=== PATIENT | female | born 2000 | race Caucasian/White ===

== ENCOUNTER 2024-08-09 17:15 | Outpatient (CLI) | payer MEDICAID, SELFPAY | END 2024-08-09 17:16 | disposition home or self-care (01) | LOC: NFLDREF 08-12 09:42 | PROVIDERS: Visit Provider Midwife | DX: Z34.83 Encounter for supervision of other normal pregnancy, third trimester (principal) | CPT/HCPCS: 86592 ==

== ENCOUNTER 2024-10-05 10:00 | Outpatient (CLI) | payer MEDICAID, SELFPAY | END 2024-10-05 10:01 | disposition home or self-care (01) | LOC: NFLDREF 10-07 14:33 | PROVIDERS: Visit Provider Advanced Practice Midwife | DX: Z34.93 Encounter for supervision of normal pregnancy, unspecified, third trimester (principal); Z3A.37 37 weeks gestation of pregnancy | CPT/HCPCS: 87081; 87653 ==

== ENCOUNTER 2024-10-28 23:50 | Inpatient (IN) | payer MEDICAID, SELFPAY ==
[2024-10-28 23:53] VITALS: BMI 26.3
[2024-10-28 23:56] VITALS: BP 126/84; PULSE 75
[2024-10-29] VITALS (15 sets, daily range): BP systolic 100–133; BP diastolic 59–95; PULSE 71–127; RESP 16–18; TEMP 36.4–37.1; O2SAT 96–98
[2024-10-29 00:13] LABS: Hematocrit 39.8 % (33.0-51.0); Hemoglobin* 13.6 gm/dL (12.0-16.0); Immature Granulocytes Pct Auto 0.3 %; Mean Corpuscular HGB Conc 34 gm/dL (32-36); Mean Corpuscular Hemoglobin 30 pg (26-34); Mean Corpuscular Volume 87 fL (80-100); RDW Coefficient of Variation % 13.1 % (11.5-15.5); Red Blood Count 4.59 m/uL (4.00-5.20); White Blood Count* 13.22 K/uL (4.50-11.00)
[2024-10-29 00:15] LABS: Immature Granulocytes Abs Auto 0.00 K/uL (0.00-0.30); Lymphocytes Absolute Auto 1.70 K/uL (0.90-2.90); Slide Review Reflex No
--- NOTE | 2024-10-29 01:52 | W.PM.LDBA ---
Subjective History of Present Illness Date Seen: 10/29/24 Narrative: Patient is being admitted to Labor and Delivery for spontaneous labor. She is a 24 year old at 40.2 weeks gestation. Her full history and physical was dictated by Quynh Hernadez CNM on 10/13/24. Please see this for details. She was seen in the clinic today and had a membrane sweep. She began jason around 1900 and presented to the unit shortly before midnight. Specific Issues/Plans G2 P 1001 Partner: Stan, Son: Sarmad. It is a girl!? SAMEER Pierce has POTS and has fainted before. Transfer at 28 weeks New in [place] (SAMEER had 1st baby at [facility]) H&P done by Quynh Hernadez on 10/13/24 ? #Non-immune to rubella. Offer MMR #Left cardiac ventricular EIF Genetic/carrier screen recommended by [facility]. Sent 08/03/2024: Low Risk ? COVID:??declines Flu:??? Tdap:?09/14/2024 32wk Mental Health:?08/24/24 34wk hgb:09/14/24 ? Pap: [(Only high-risk abnormal pap in problem list)]? ?? OB Labs 04/05/2024:??? Blood type: A+, antibody screen negative.??? Hgb: 13.4??? Platelets: 217??? Rubella: Nonimmune??? RPR: non-reactive??? HBsAg: non-reactive??? Hep C: negative? HIV: negative??? UC: negative? GC/Chlamydia: HgbA1C:4.6? IMAGING:??? 1st trimester:Not done Anatomy scan: ?Normal findings except left cardiac EIF and slight enlargement of cerebellum noted. Size =dates. Normal fluid levels. Anterior placenta. Normal maternal structures. F/U in 2-3w recommended.?? Others: 06/08/24- Follow up with dopplers: Normal growth with normal cerebellum. EIF intracardiac of left ventricle persists and seen in only some images.? Records requested for her early care visit, indicated on records available. OB - Problem Based A/P Additional Plan (1) Pain during labor: Status: Acute (2) Rubella non-immune status, delivered, current hospitalization: Status: Acute Plan ASSESSMENT:? at 40.2 weeks gestation? GBS negative? Uncomplicated ? Labor type: spontaneous Blood type:?A+ ?? PLAN:? 1. Candidate for analgesia of choice. Planning unmedicated .? 2. Labs collected with IV placement for anticipated AMTSL. 3. Anticipate .? 4. Expectant management at this time.? 5.Intermittent auscultation after reactive tracing. Delivery/Labor/Induction Plan Plan: expectant management OB Result Labs Blood Type: A (+) positive Rubella: nonimmune RPR/VDLR: nonreactive GBS Status: negative HBsAG: negative OB Exam Physical Exam Vital signs: Temp Pulse Resp BP 97.8 F 71 16 119/62 10/29/24 01:49 10/29/24 01:49 10/29/24 01:49 10/29/24 01:49 Narrative: Psychiatric:? Alert and oriented x3? HEENT:? Normocephalic, atraumatic? Neck:? Supple without adenopathy or thyromegaly? Lungs:? Clear to auscultation bilaterally? Heart:? Regular rate and rhythm, no murmur, rub or gallop? Abdomen:? Soft, nontender, and gravid? Extremities:? No edema or erythema? Detailed Labor and Delivery Exam Patient Gravid: yes Dilation (cm): 6 (per RN exam) Contraction Frequency: 3-4 Contraction intensity: Strong/Firm Fetus (Single) Amniotic Membrane Status: intact Heart Rate Baseline: 125 Monitor Accelerations: Present Monitor Decelerations: None Halfway Variability: Moderate (6-25)
[2024-10-29] MEDS: OXYTOCIN 30 unit/500 ML in NS 30 UNIT/500 ML BAG 300 UNIT IVPB (02:03)
--- NOTE | 2024-10-29 02:25 | W.PM.OBVAGDE ---
OB Procedure Vag Delivery Mother Details Mother Details: The patient is a 24 year-old, 2, Para 1, admitted on 10/28/24 at 40.3 Days gestation. : 2 Para: 2 Weeks Gestation: 40.3 Admission Date: 10/28/24 Additional Details Amniotic Membrane Status: AROM Amniotic Membrane Rupture Date: 10/29/24 Amniotic Membrane Rupture Time: 01:44 Amniotic Membrane Fluid Description: Clear Analgesia/Anesthesia Type: None Waterbirth: No Pitcoin: Yes (AMTSL only) Intrapartal Events: None Labor Onset: 19:00 Complete: 01:52 (presumed complete with spontaneous pushing ) Pushin:52 Heart: heart tones during second stage were auscultated in the 120's. Increase was heard. Delivery Details Delivery Date: 10/29/24 Delivery Time: 02:00 Route of delivery: Infant Gender: Female Infant Viability: Alive; Heart Rate Present Position at Delivery: OA Delivery Details: Patient was admitted for spontaneous labor and progressed normally. AROM noted at 0144 with clear fluid. Patient was presumed complete with spontaneous pushing at 0144. of a viable female at 0200 in hands and knees on the bed. Vertex delivered OA. No nuchal cord or shoulder. Body cord noted with delivery of the body was easily delivered through. Body delivered easily and without incident. Infant passed to mothers abdomen through her legs with a vigorous cry. Cord was clamped and cut at > 5 minutes. APGARS were 9 at one minute and 9 at five minutes respectively. Mouth was bulb suctioned. Intact placenta with a 3 vessel cord delivered spontaneously at 0208. Fundus firm. Intact perineum identified and repaired in typical fashion. QBL 150mL in the drape and 100mL EBL on pads on the bed. Mother and baby stable; mother plans to breastfeed. weight pending. 1 Minute Interval Total Score: 9 5 Minute Interval Total Score: 9 Additional Details Shoulder Dystocia: No Placenta Delivery Time: 02:08 Placental Delivery Description: Spontaneous Procedure Done: Global Blood Loss: 250 Laceration: None Episiotomy Description: None Blood Loss Measurement Type: EBL Bakri Used: No Sponge/Need Count Correct: Yes Cord Vessel Description: 3 Vessels, Around Body and Delivered through Event Summary Status: Mother and infant were stable after delivery. Disposition: floor
[2024-10-29] MEDS: METHYLERGONOVINE MALEATE 0.2 MG TABLET PO (10:07)
[2024-10-30 00:21] VITALS: BP 105/67; PULSE 76; RESP 14; TEMP 36.9; O2SAT 98
[2024-10-30 03:32] VITALS: BP 96/64; PULSE 91; RESP 16; TEMP 36.6; O2SAT 98
[2024-10-30 06:09] LABS: Hemoglobin* 11.4 gm/dL (12.0-16.0)
[2024-10-30 07:39] VITALS: BP 104/69; PULSE 88; RESP 16; TEMP 36.5; O2SAT 98
--- NOTE | 2024-10-30 07:52 | P.DS_ITS ---
DS: Providers Provider Date Seen: 10/30/24 Date of admission: 10/28/24 23:50 Primary care physician: Not a Local Provider Admitting Clinician: Karen Perkins CNM Attending Physician on discharge: Edmundo Hernadez CNM Date of Discharge: 10/30/24 DS: Diagnosis Discharge Diagnosis (1) care and examination immediately after delivery: Status: Acute (2) Lactating mother: Status: Acute Exam Narrative: Exam Narrative: VSS, afebrile GENERAL APPEARANCE: ?normal affect, alert, no distress MOOD: ?appropriate HEENT: normocephalic, neck supple, full ROM CHEST: ?Symmetrical chest wall movement. ?Normal respiratory effort. ?Clear to auscultation HEART: ?regular rate and rhythm ABDOMEN: ?soft, non-tender. Uterine fundus is firm, 2 below Umbilicus, Midline and is appropriate for the stage of recovery. ?Bowel sounds present. PERINEUM: ?mild edema of the perineum, intact EXTREMITIES: ?normal and trace edema Const: Vital Signs, click to edit/add: Vital Signs - 24 hr 10/29/24 08:50 10/29/24 12:53 10/29/24 16:37 Temperature 98.2 F 97.8 F Pulse Rate [Pulse Oximeter] 127 H 98 101 H Respiratory Rate 16 16 16 Blood Pressure [Ri ght Arm] 109/70 100/64 116/72 Pulse Oximetry 98 97 96 Oxygen Delivery Me thod Room Air Room Air 10/29/24 20:44 10/30/24 00:21 10/30/24 03:32 Temperature 98.8 F 98.5 F 97.8 F Pulse Rate [Pulse Oximeter] 106 H 76 91 Respiratory Rate 18 14 16 Blood Pressure [Ri ght Arm] 107/66 105/67 96/64 Pulse Oximetry 97 98 98 Oxygen Delivery Me thod Room Air Room Air Room Air 10/30/24 07:39 Temperature 97.7 F Pulse Rate [Pulse Oximeter] 88 Respiratory Rate 16 Blood Pressure [Ri ght Arm] 104/69 Pulse Oximetry 98 Oxygen Delivery Me thod Room Air Documenting provider has reviewed patient's vital signs: yes OB - DS: Summary Hospital Course Hospital Course: Nia is a 24 y.o. who was admitted to L & D for labor. ?She had an uncomplicated NVD.?The patient feels well. ?The pain is well controlled with current medications. ?She has no new complaints. ?She is breast feeding and reports things are going well.? the patient has done well.? Vitals have been stable.? She has remained afebrile.? Has a good appetite, is tolerating a general diet. ?She is voiding without difficulty.? She is passing gas and has not had a bowel movement.? She is ambulating and denies any dizziness.? Has Small amount of rubra lochia. ?She is undecided on their plan for prevention. She is requesting discharge today. Peripartum Data delivery method: Vaginal complications: none [place] Infant Gender: Female Discharge Plan: Home Status at Discharge Functional status at discharge: independent ambulation Overall status at discharge: patient is progressing back to baseline Time Spent with Patient Time attestation: Total time spent providing and/or coordinating discharge services: Time spent: Less than 30 minutes Discharge Plan Discharge Disposition: Home, Self-Care Date of Admission: 10/28/24 23:50 Attending Provider on Discharge: Edmundo Hernadez Primary Care Provider: Provider,Not a Local Condition: Stable Anticipated Discharge Date/Time: 10/30/24 12:00 Discharge Medications: New acetaminophen 500 mg Tablet 1,000 mg PO Q6H PRNQty: 0 0RF docusate sodium 100 mg Capsule 100 mg PO DAILY Qty: 90 0RF ibuprofen 600 mg Tablet 600 mg PO Q6H PRNQty: 60 0RF Continued One-A-Day -1 27 mg iron- 800 mcg-235 mg capsule 1 cap PO raspberry leaf tea PO DAILY Discharge Orders: Discharge Order (Routine); Ordered 10/30/24 Ordered By: Edmundo Hernadez Patient Education: OB Over the Counter Medication Information, OB Vaginal/Breast Feeding Additional Instructions: Discharge instructions were reviewed with the patient including signs and symptoms of infection and home going medications Nothing vaginally for 6 weeks: no tampons or intercourse Off Work or School for 6 weeks 2-week visit: discuss infant feeding concerns, review control options and screen for anxiety/depression. 6-week visit for an annual exam. consultation services are available to all mothers and babies for the first year after delivery.? To make an appointment, please call [phone]. Activity Level: Activity as Tolerated Discharge Diet: Regular Follow Up Appointments: Provider,Not a Local [Primary Care Provider, Family Practice] [facility] [Provider Group] Forms: Patient Belongings, MyHealth Info Instructions
[2024-10-30] MEDS: DOCUSATE SODIUM 100 MG CAPSULE PO (08:59)
== END 2024-10-30 10:15 | disposition home or self-care (01) | DRG 807 ==
LOC: OB OUT 10-29 00:03 → OB 10-29 07:30
PROVIDERS: Admitting Provider Advanced Practice Midwife; Visit Provider Advanced Practice Midwife
DX: O80 Encounter for full-term uncomplicated delivery (principal); Z37.0 Single live birth; Z28.39 Other underimmunization status; Z3A.40 40 weeks gestation of pregnancy
CPT/HCPCS: 36415; 85018; 85025; 86592; 86850; 86900; 86901; G0463; A9270